=== PATIENT | female | born 1975 | race Caucasian/White ===

== ENCOUNTER 2017-07-01 19:06 | Emergency (ER) | payer OTHER ==
[~2017-07-01] VITALS: Ht 177.8 cm; Wt 105.0 kg
[~2017-07-01 19:06] MED LIST: NO MEDS
[2017-07-01 19:16] VITALS: Ht 177.8 cm; Wt 105.0 kg
[2017-07-01] MEDS ORDERED: KETOROLAC 60 MG INJ IM STA (20:51)
[2017-07-01] MEDS ORDERED: IBUP-1542 PO (21:56)
[2017-07-01] MEDS ORDERED: CYCL-319 PO (21:56)
[2017-07-01 22:08] VITALS: BP 141/93; PULSE 85; RESP 16
--- NOTE | 2017-07-01 22:12 | ERD ---
ER Documentation Chief Complaint Date/Time DATE: 07/01/17 TIME: 22:07 Chief Complaint back pain denies injury HPI 41-year-old female patient with a past medical history of migraines and back arthritis presents to the ED complaining of lower back pain that started intermittently for 1 week. States that she accidentally fell and landed on the left side of her back which do not initially create the pain. States that when she lifted a car battery that was about 40-50 pounds, she exacerbated a right- sided back pain. Denies any saddle anesthesia, urine or bowel incontinence, urinary retention, chest pain, shortness of breath, abdominal pain, nausea, vomiting, diarrhea. ROS All systems reviewed and are negative except as per history of present illness. Medications Home Meds Active Scripts Cyclobenzaprine Hcl* (Cyclobenzaprine Hcl*) 10 Mg Tablet, 10 MG PO TID, #15 TAB Prov:ARMOND GARCES PA-C 07/01/17 Ibuprofen* (Motrin*) 600 Mg Tab, 600 MG PO Q6, #30 TAB Prov:ARMOND GARCES PA-C 07/01/17 Reported Medications [none] No Conflict Check 11/11/12 [No Meds] No Conflict Check 11/04/12 [No Meds] No Conflict Check 06/29/12 [None] No Conflict Check 02/15/10 Allergies Allergies: Coded Allergies: sumatriptan (Verified Allergy, Mild, 12/26/13) sumatriptan succinate (Verified Allergy, Mild, 12/26/13) zolmitriptan (Verified Allergy, Mild, 12/26/13) PMhx/Soc History of Surgery: Yes (Metal plate left leg, ) Anesthesia Reaction: No Hx Neurological Disorder: No Hx Respiratory Disorders: No Hx Cardiac Disorders: No Hx Psychiatric Problems: No Hx Miscellaneous Medical Probl: Yes (Migraines) Hx Alcohol Use: No Hx Substance Use: No Hx Tobacco Use: No Smoking Status: Never smoker Physical Exam Vitals Vital Signs Date Time Temp Pulse Resp B/P Pulse Ox O2 Delivery O2 Flow Rate FiO2 07/01/17 19:16 98.1 103 20 137/80 100 Physical Exam Const: Ulm-rjb-xnnezsaft, well-nourished. In no acute distress. Head: Atraumatic, normocephalic Eyes: Normal Conjunctiva without injection. No purulent discharge. ENT: Normal external ear, nose. Moist oropharynx without tonsillar exudates. Non -erythematous pharynx. Uvula midline. No drooling. No trismus. Neck: No cervical midline tenderness. Full range of motion. No meningismus. No cervical lymphadenopathy. No JVD. Resp: Clear to auscultation bilaterally. No wheezing, rhonchi, rales, or crackles. No accessory muscle use. No retractions. Cardio: Regular rate and rhythm. No murmurs, rubs or gallops. Abd: Soft, nontender, non distended. Normal bowel sounds. No palpable masses. No rebound tenderness. No guarding. Negative McBurney's point. Negative psoas sign. Negative obturator sign. Skin: No petechiae or rashes Back: No midline tenderness. No CVA tenderness. Tenderness palpation of the left lumbar muscles. Negative straight leg test. Ext: No cyanosis, or edema. Neur: Awake and alert. Normal gait. Normal coordination. Psych: Normal Mood and Affect Results 24 hrs Current Medications Medications (Trade) Dose Ordered Sig/Alfonso Route PRN Reason Start Time Stop Time Status Last Admin Dose Admin Ketorolac Tromethamine (Toradol) 60 mg ONCE STAT IM 07/01/17 20:51 07/01/17 20:53 DC 07/01/17 21:34 Procedures/MDM 41-year-old female patient with no significant past medical history presents the ED complaining of lower back pain that started intermittently for 1 week. Patient is afebrile and nontoxic-appearing. Patient has normal vital signs. Negative urine test. Patient was given Toradol here in the ED with improvement of her symptoms. Patient is ambulating here in the ED without difficulty. Patient does not have any midline tenderness of the lumbar spine. Patient's pain likely musculoskeletal. No indication for a lumbar x-ray. Denies saddle anesthesia, numbness or tingling, urine or bowel incontinence, weakness. Low suspicion for cauda equina syndrome, cord compression, nephrolithiasis, aortic aneurysm, aortic dissection, epidural abscess, spinal hematoma, malignancy, pyelonephritis, or other emergent conditions. Discharge medications: Flexeril, Ibuprofen Follow up with primary care physician in 1-2 days. Instructed patient to return to the ED sooner for any worsening symptoms. Patient's questions were answered. Patient understood and agreed with discharge plan. Patient discharged stable. Departure Diagnosis: Primary Impression: Back pain Back pain location: back pain in unspecified location Chronicity: unspecified Back pain laterality: unspecified Qualified Code: M54.9 - Back pain, unspecified back location, unspecified back pain laterality, unspecified chronicity Condition: Stable Patient Instructions: Back Pain (Acute Or Chronic) Referrals: FREDERIC ROWAN MD (PCP) [facility] YOU HAVE RECEIVED A MEDICAL SCREENING EXAM AND THE RESULTS INDICATE THAT YOU DO NOT HAVE A CONDITION THAT REQUIRES URGENT TREATMENT IN THE EMERGENCY DEPARTMENT. FURTHER EVALUATION AND TREATMENT OF YOUR CONDITION CAN WAIT UNTIL YOU ARE SEEN IN YOUR DOCTORS OFFICE WITHIN THE NEXT 1-2 DAYS. IT IS YOUR RESPONSIBILITY TO MAKE AN APPOINTMENT FOR FOLOW-UP CARE. IF YOU HAVE A PRIMARY DOCTOR --you should call your primary doctor and schedule an appointment IF YOU DO NOT HAVE A PRIMARY DOCTOR YOU CAN CALL OUR PHYSICIAN REFERRAL HOTLINE AT IF YOU CAN NOT AFFORD TO SEE A PHYSICIAN YOU CAN CHOSE FROM THE FOLLOWING [facility] [address] [facility]. [facility] [address] [facility] [address] [facility] [facility] [address] [facility]. [facility] [address] [facility]. [facility]. [address] [facility] YOU HAVE RECEIVED A MEDICAL SCREENING EXAM AND THE RESULTS INDICATE THAT YOU DO NOT HAVE A CONDITION THAT REQUIRES URGENT TREATMENT IN THE EMERGENCY DEPARTMENT. FURTHER EVALUATION AND TREATMENT OF YOUR CONDITION CAN WAIT UNTIL YOU ARE SEEN IN YOUR DOCTORS OFFICE WITHIN THE NEXT 1-2 DAYS. IT IS YOUR RESPONSIBILITY TO MAKE AN APPOINTMENT FOR FOLOW-UP CARE. IF YOU HAVE A PRIMARY DOCTOR --you should call your primary doctor and schedule and appointment IF YOU DO NOT HAVE A PRIMARY DOCTOR YOU CAN CALL OUR PHYSICIAN REFERRAL HOTLINE AT . IF YOU CAN NOT AFFORD TO SEE A PHYSICIAN YOU CAN CHOSE FROM THE FOLLOWING [facility]: [facility] [address] [place] [address] [facility] [address] [place] [address] [facility] + [facility] [address] [place] [address] [facility] URGENT C[facility]/SPECIALTIES Additional Instructions: Call your primary care doctor TOMORROW for an appointment during the next 2-3 days.See the doctor sooner or return here if your condition worsens before your appointment time. ARMOND GARCES PA-C Jul 01, 2017 22:12 ARMOND GARCES PA-C Jul 01, 2017 22:12
== END 2017-07-01 22:16 | disposition home or self-care (01) ==
LOC: FTE 19:06
DX: M54.5 Low back pain (principal)
CPT/HCPCS: 96372; J1885; Z7502